=== PATIENT | male | born 1970 | race Caucasian/White ===

== ENCOUNTER 2022-01-03 10:20 | Emergency (ER) | payer OTHER ==
[~2022-01-03] VITALS: Ht 170.2 cm; Wt 95.3 kg
[~2022-01-03 10:20] MED LIST: MOTRIN800 MG PO
== END 2022-01-03 14:52 | disposition home or self-care (01) ==
LOC: ER 10:20
DX: M54.9 Dorsalgia, unspecified (principal); M50.31 Other cervical disc degeneration, high cervical region

== ENCOUNTER 2022-01-04 07:01 | Outpatient (CLI) | payer OTHER | END 2022-01-04 07:12 | disposition home or self-care (01) | LOC: MRI 07:01 | PROVIDERS: ATTEND General Practice | DX: M54.9 Dorsalgia, unspecified (principal) | CPT/HCPCS: 72148 ==

== ENCOUNTER 2023-01-09 21:34 | Emergency (ER) | payer OTHER ==
[~2023-01-09] VITALS: Ht 170.2 cm; Wt 96.2 kg
== END 2023-01-10 01:51 | disposition home or self-care (01) ==
LOC: ER 21:34
DX: I10 Essential (primary) hypertension (principal); R51.9 Headache, unspecified; Z91.018 Allergy to other foods